=== PATIENT | male | born 1945 | race Caucasian/White ===

== ENCOUNTER 2017-10-07 06:31 | Outpatient (CLI) | payer OTHER ==
--- NOTE | 2017-10-07 08:48 | US ---
EXAM: Bilateral carotid artery Doppler History: Dizziness. Technique: Multiple sonographic images through the bilateral internal carotid arteries were obtained . Color duplex Doppler was used to interrogate vascular flow. Findings: The right ICA peak systolic velocity is moderately elevated measuring 1.7 meters per second. The righ t ICA/cca PSV ratio is moderately increased at 2.4. The right vertebral artery is patent and demonst rates antegrade flow. Sosa scale images demonstrate moderate plaque buildup within the right interna l carotid artery. The left ICA peak systolic velocity is normal measuring 0.9 meters per second. The left ICA/cca PSV ratio is normal at 1.3. The left vertebral artery is patent and demonstrates antegrade flow. Sosa s kalyani images demonstrate mild to moderate plaque buildup within the left internal carotid artery. Impression: 1. Moderate, 50-69% hemodynamic stenosis of the right internal carotid artery. 2. No significant hemodynamic stenosis of the left internal carotid artery.
--- NOTE | 2017-10-07 12:41 | MRI ---
EXAM: Brain MRI with and without contrast. HISTORY: Dizziness and headache. COMPARISON: None. TECHNIQUE: Multiplanar, multisequence MR images were acquired of the brain before and after administ ration of intravenous contrast. FINDINGS: The midline structures are central and the craniocervical junction is unremarkable. The v entricles, sulci and cisterns are commensurately prominent compatible with age related involutional c hanges. There are no abnormal extra-axial fluid collections. The brain parenchyma has no diffusion restriction to suggest acute hypoperfusion or infarction. Ther e are a mild to moderate number of small T2 hyperintensities in the supratentorial white matter and l eft basal ganglia. A chronic lacuna is present in the right caudate head. There is no abnormal dark gradient echo signal. After administration of gadolinium, no enhancing lesions are identified. The corpus callosum is normal. The pituitary gland is small with a concave anterior superior border. E nhancement is homogeneous and the infundibulum is midline. There are no intraorbital masses. There is undulation of the nasal septum and there is hypoplasia of both maxillary sinuses which have mild mucosal thickening and small mucous retention cysts. Minor m ucosal thickening is present in the ethmoid air cells bilaterally and in the sphenoid sinus. Mucosal thickening is present in a few inferior and a few posterior right mastoid air cells. There is no ab normal contrast enhancement in the internal auditory canals or labyrinthine structures. Flow voids are present in the major intracranial arteries and dural venous sinuses. IMPRESSION: 1. No intracranial mass, hemorrhage or acute cerebral infarct. 2. Age related involutional changes and mild to moderate leukomalacia. Possible etiologies include chronic ischemic small vessel disease or hypertensive encephalopathy. 3. Chronic lacuna right caudate nucleus.
== END 2017-10-07 06:32 | disposition home or self-care (01) ==
LOC: CAR 06:31
PROVIDERS: ATTEND Internal Medicine
DX: R06.02 Shortness of breath (principal); R00.2 Palpitations; I49.3 Ventricular premature depolarization; R42 Dizziness and giddiness; R51 Headache
CPT/HCPCS: 36415; 82565

== ENCOUNTER 2017-10-09 06:51 | Outpatient (CLI) | payer OTHER | END 2017-10-09 06:52 | disposition home or self-care (01) | LOC: CAR 06:51 | PROVIDERS: ATTEND Internal Medicine | DX: R06.02 Shortness of breath (principal); R00.2 Palpitations; I49.3 Ventricular premature depolarization ==

== ENCOUNTER 2019-07-20 11:13 | Inpatient (IN) ==
[2019-07-20] MEDS ORDERED: NITROSTAT SL PRN (11:42)
[2019-07-20] MEDS ORDERED: ATROPINE SULFATE PFS IVP PRN (11:42)
[2019-07-20] MEDS ORDERED: VISTARIL INJ IM PRN (11:42)
[2019-07-20] MEDS ORDERED: TYLENOL PO PRN (11:42)
[2019-07-20 11:54] VITALS: BMI 23.6
[2019-07-20 12:00] LABS: HEMATOCRIT 38.5 % (42.0-52.0)
[2019-07-20] MEDS ORDERED: DECADRON 4 MG/ML SDV IM STA (12:31)
--- NOTE | 2019-07-20 13:07 | US ---
EXAM: ULTRASOUND LOWER EXTREMITY VENOUS DOPPLER EXAM HISTORY: Swelling of bilateral legs. FINDINGS: Bilateral lower extremity venous Doppler exam. Real time matta-scale, Doppler spectral rickie lysis and color-flow Doppler imaging performed. The veins targeted for evaluation include the common femoral, greater saphenous, profundus, femoral, popliteal, peroneal, anterior tibial and posterior t ibial. The evaluated veins demonstrated normal spontaneous flow and compression without evidence o f thrombosis. IMPRESSION: No venous thrombosis identified within the areas evaluated.
[2019-07-20] MEDS: CLEOCIN 300 MG/50 ML D5W 300 MG/50 ML BAG IV SCH ×2 (13:34→21:04)
[2019-07-20] MEDS: ROCEPHIN 1 GM/50 ML D5W 1 GM/50 ML BAG IV SCH (14:30)
--- NOTE | 2019-07-20 14:44 | DI ---
EXAM: Chest one view HISTORY: Shortness of air with exertion COMPARISON: None TECHNIQUE: Single view of the chest was performed FINDINGS: The lungs are clear. There is no pleural effusion or pneumothorax. The heart is normal i n size. The mediastinal contour is normal, noting atherosclerosis. There are no acute abnormalities of the bones. IMPRESSION: No acute cardiopulmonary process.
[2019-07-20] MEDS ORDERED: XARELTO PO SCH (21:00)
[2019-07-20] MEDS: RIVAROXABAN 2.5 MG PO SCH (21:04)
[2019-07-21 05:30] LABS: HEMATOCRIT 38.5 % (42.0-52.0)
[2019-07-21] MEDS: CLEOCIN 300 MG/50 ML D5W 300 MG/50 ML BAG IV SCH ×3 (05:39→20:37)
[2019-07-21] MEDS ORDERED: DECADRON 4 MG/ML SDV IM STA (07:47)
--- NOTE | 2019-07-21 08:28 | PCM.PROG ---
Attending Provider: ATTENDING PROVIDER: Dr. SHERRI CHAU This patient is seen with Danielle Roper, Nurse Practitioner. DATE OF SERVICE: 07/21/19 SUBJECTIVE: This 74 year old /WHITE M was hospitalized 07/20/19. The patient is resting comfortably. No fever. Swelling has significantly improved. The patient states the pain has improved. Venous scan was negative. REVIEW OF SYSTEMS: CONSTITUTIONAL: No night sweats. No fatigue, malaise, lethargy. No fever or chills. HEENT: Eyes: No visual changes. No eye pain. No eye discharge. ENT: No runny nose. No epistaxis. No sinus pain. No odynophagia. No congestion. RESPIRATORY: No cough, no congestion. No hemoptysis. No shortness of breath. CARDIOVASCULAR: No angina symptoms. No CHF symptoms. No atypical chest pain for CAD. No palpitations. No orthopnea.. GASTROINTESTINAL: No abdominal pain. No nausea or vomiting. No diarrhea or constipation. No hematemesis. No hematochezia. GENITOURINARY: No urgency. No frequency. No dysuria. No hematuria. No obstructive symptoms. No discharge. No pain. No significant abnormal bleeding. MUSCULOSKELETAL: No musculoskeletal pain; no joint swelling. Right leg pain and swelling. NEUROLOGICAL: Awake, alert, oriented to time, place and person. No headache. No neck pain. No syncope. No seizures. No dizziness. PSYCHIATRIC: Not anxious. No depression. No suicidal thoughts. No homicidal thoughts. SKIN: No rash. No lesions. No wounds. ENDOCRINE: No unexplained weight loss. No weight gain. HEMATOLOGIC/LYMPHATIC: No anemia. No purpura. No petechiae. No prolonged or excessive bleeding. No palpable lymph nodes. PHYSICAL EXAMINATION: GENERAL: The patient is awake, alert and oriented, lying in bed in no distress. VITAL SIGNS: Temperature 97.6 F, Pulse 58, Respiratory Rate 18, BP 159/70, Pulse Ox 99% HEENT: Head normocephalic, atraumatic. Eyes: Extraocular muscles are intact. Pupils are equal, round and reactive to light and accommodation. Ears: No lesions. Nose appeared normal. Throat: No exudate or erythema. NECK: Supple. No JVD, no carotid bruit. No lymphadenopathy or thyromegaly. LUNGS: Diminished breath sounds. Clear to auscultation. Percussion note normal. Chest symmetrical. HEART: S1, S2, no S3. No murmurs. No cyanosis or clubbing. No ascites. Pulses: Dorsalis pedis and posterior tibial pulses +1 to +2 both sides. ABDOMEN: Soft. Non-tender. Bowel sounds active. No CVA tenderness. No mass felt. EXTREMITIES: Right lower extremity erythema and swelling, knee with erythema and swelling of ankle. Full range of motion of all extremities, equal. NEUROLOGIC: No focal deficit. Cranial nerves II through XII are grossly intact. No headache, no double vision or headache. SKIN: Not dry. Intact. Turgor-normal. LYMPHATIC: No palpable lymph nodes/no lymphedema. MUSCULOSKELETAL: Normal joints with no swelling. Muscle tone is normal. LAB REVIEW: 07/21/19 05:12 07/21/19 05:12 07/21/19 05:12: Sodium 137.9, Potassium 4.96, Chloride 108.1 H, Carbon Dioxide 25.9, Anion Gap 8.86, BUN 17.2, Creatinine 0.94, Estimated GFR (MDRD) 78.00, BUN/Creatinine Ratio 18.29, Glucose 120.6 H, Calcium 9.34, Total Bilirubin 0.50, AST 31.8, ALT 22.1, Alkaline Phosphatase 95.0, Total Protein 6.99, Albumin 3.46 L, Globulin 3.53, Albumin/Globulin Ratio 0.98 07/21/19 05:12: WBC 10.29 H, RBC 4.02 L, Hgb 13.3 L, Hct 38.5 L, MCV 95.8 H, MCH 33.1 H, MCHC 34.5, RDW Coeff of Corrine 11.7, Plt Count 260, Immature Gran % (Auto) 0.3, Neut % (Auto) 72.1, Lymph % (Auto) 19.9, [place] % (Auto) 6.7, Eos % (Auto) 0.7, Baso % (Auto) 0.3, Neut # (Auto) 7.4 H, Lymph # (Auto) 2.1, [place] # (Auto) 0.7, Eos # (Auto) 0.1, Baso # (Auto) 0.0, Immature Gran # (Auto) 0.0 07/20/19 19:45: Total Creatine Kinase 81.2, Troponin I < 0.012 07/20/19 17:10: Urine Color Yellow, Urine Clarity Clear, Urine pH 7.0, Ur Specific [place] 1.020, Urine Protein Negative, Urine Glucose (UA) Negative, Urine Ketones Negative, Urine Blood Negative, Urine Nitrite Negative, Urine Bilirubin Negative, Urine Urobilinogen 0.2, Ur Leukocyte Esterase Negative 07/20/19 11:54: Sodium 139.2, Potassium 4.76, Chloride 107.8 H, Carbon Dioxide 28.3, Anion Gap 7.86, BUN 20.0, Creatinine 1.10, Estimated GFR (MDRD) 65.00, BUN/Creatinine Ratio 18.18, Glucose 100.9, Calcium 9.60, Total Bilirubin 0.53, AST 34.5, ALT 25.5, Alkaline Phosphatase 108.3, Total Creatine Kinase 85.2, Troponin I < 0.012, Total Protein 7.52, Albumin 3.87, Globulin 3.65, Albumin/Globulin Ratio 1.06 07/20/19 11:54: WBC 9.82, RBC 3.97 L, Hgb 13.1 L, Hct 38.5 L, MCV 97.0 H, MCH 33.0 H, MCHC 34.0, RDW Coeff of Corrine 11.8, Plt Count 240, Immature Gran % (Auto) 0.4, Neut % (Auto) 56.1, Lymph % (Auto) 28.1, [place] % (Auto) 8.5, Eos % (Auto) 6.2, Baso % (Auto) 0.7, Neut # (Auto) 5.5, Lymph # (Auto) 2.8, [place] # (Auto) 0.8, Eos # (Auto) 0.6, Baso # (Auto) 0.1, Immature Gran # (Auto) 0.0 ASSESSMENT: Please see below. 1. Right lower extremity cellulitis 2. Hypertension 3. History of coronary artery disease. PLAN: 1. CT right leg without contrast 2. 1/2cc Decadrone IM today 3. Continue IV antibiotics 4. Keep right leg elevated Plan and coordination of the patient's care discussed in the presence of Rn Perioperative and nurse. SCRIBED BY: Mabel JEFFERSist scribed while in presence of service performed by Dr. Chau/Danielle Roper APRN on 07/21/19 ([id number])
--- NOTE | 2019-07-21 09:48 | HP ---
DATE OF SERVICE: 07/20/2019 REASON FOR HOSPITALIZATION/HISTORY OF PRESENT ILLNESS: 74 year old male hospitalized with rash on arms and legs. Swollen right lower extremity with redness and pain with walking. No signs or symptoms of CHF and CAD. PAST MEDICAL HISTORY: Chronic back pain Chronic right shoulder pain Severe internal carotid artery stenosis CAD with stent History of SVT Hypertension LVH Ejection Fraction 50% PAST SURGICAL HISTORY: Appendectomy Bilateral knee arthroscope REVIEW OF SYSTEMS: CONSTITUTIONAL: No fever, Fatigue. GAIT: Limping. HEENT: No sinus drainage, no sore throat. RESPIRATORY: No cough, no congestion. CARDIOVASCULAR: No atypical chest pain for coronary artery disease. No angina, CHF symptoms, palpitations or shortness of breath. GASTROINTESTINAL: No melena or abdominal pain. No GERD. GENITOURINARY: No hematuria, no prostatism, no polyuria. OCCUPATIONAL THERAPY PROFESSOR: No blackout, no dizziness, no headache, no double vision. MUSCULOSKELETAL: No osteoarthritis pain, Joint swelling, right knee. ENDOCRINE: No weight loss, no weight gain. SKIN: Not dry, Rash. PSYCHIATRIC: Not anxious, no depression, no suicidal thoughts, no homicidal thoughts. SOCIAL HISTORY: Marital Status: Lives with . Alcohol Usage: No. Tobacco Usage: No. FAMILY HISTORY: Father CAD Mother CA breast Brother 3 brothers; 1 CAD and 1 leg problems (1 CHF and Diabetes mellitus) Sister 1 health? unsure MEDICATIONS: Aspirin 325mg one daily ALLERGIES: No known allergies PHYSICAL EXAMINATION:%. BMI 24.7, height 5'10. Weight 172. V/S: Pulse 64, blood pressure 142/82, temperature 98.1, oxygen saturation 9 GENERAL APPEARANCE: Oriented times three. HEENT: Normal. NECK: No JVP, no bruits. RESPIRATORY: Lungs are clear. CARDIOVASCULAR: S1, S2, no S3, no murmur. No cyanosis, clubbing. No ascites. GI/ABDOMEN: No tenderness. Bowel sounds are active. EXTREMITIES: +1 edema right lower extremity redness right knee and foot. Superficial rash inner forearms. Pulses +1, equal. OCCUPATIONAL THERAPY PROFESSOR: Deep tendon reflexes, sensory, motor and gait all normal. RECTAL/PELVIC/PROSTATE:09-19 (0.9). ASSESSMENT: 1. Swollen Right lower extremity 2. Rule out right DVT 3. Cellulitis right lower extremity 4. Rash, generalized 5. Atopic dermatitis 6. Severe right Internal carotid artery stenosis Dr. Montano 7. Contact dermatitis 8. Right carotid stenosis 50-70% 9. CAD with stent Dr. Davis 10.Right shoulder pain 11.Palpitations, History of SVT 12.Chronic back pain 13.Quit smoking 14.Hypertension, LVH 15.Dyslipidemia 16.Ejection fraction 50% 17.Stress test positive ST wave 18.CA of skin or fall appointment 07-21-2019 Case PLAN: 1. Admit 2. Routine telemetry orders 3. CBC/CMP now and daily 4. Stat bilateral venous scan 5. Rocephin 1 gram IV daily 6. Clindamycin 300mg IV Q 8 hours 7. Decadron 2mg 1/2cc IM times one 8. Keep right leg elevated 9. Continue home medications. TIME SPENT: More than 70 minutes. MTDD
[2019-07-21] MEDS: ROCEPHIN 1 GM/50 ML D5W 1 GM/50 ML BAG IV SCH (09:50)
[2019-07-21] MEDS: MICARDIS PO SCH (09:52)
[2019-07-21] MEDS: LIPITOR PO SCH (09:52)
[2019-07-21] MEDS: RIVAROXABAN 2.5 MG PO SCH ×2 (09:52→20:37)
[2019-07-21] MEDS: ASPIRIN EC PO SCH (09:52)
--- NOTE | 2019-07-21 11:49 | CT ---
EXAM: Noncontrast CT right knee. HISTORY: Evaluate for osteomyelitis. COMPARISON: None. TECHNIQUE: Noncontrast CT of the right knee with coronal size reformats. FINDINGS: Alignment: Anatomic. Bones: No acute fracture. No aggressive osseous lesion. No erosive/destructive changes or cortical indistinctness to suggest osteomyelitis. Joint spaces: Mild tricompartmental osteoarthritis with marginal osteophytosis. Incidental medial an d lateral meniscal chondrocalcinosis. Soft tissues: Nonspecific moderate prepatellar soft tissue swelling with surrounding fat stranding.. Moderate distension of the prepatellar bursa. Atherosclerotic calcifications. IMPRESSION: 1. No CT evidence for osteomyelitis. 2. Prepatellar bursitis with surrounding soft tissue swelling and subcutaneous edema. Broad differe ntial considerations include post traumatic versus inflammatory or infectious etiologies in the appro priate clinical scenario. 3. Mild tricompartmental osteoarthritis.
[2019-07-22 05:26] LABS: HEMATOCRIT 38.3 % (42.0-52.0)
[2019-07-22] MEDS: CLEOCIN 300 MG/50 ML D5W 300 MG/50 ML BAG IV SCH ×3 (05:28→20:09)
[2019-07-22] MEDS: LIPITOR PO SCH (08:37)
[2019-07-22] MEDS: ASPIRIN EC PO SCH (08:37)
[2019-07-22] MEDS: MICARDIS PO SCH (08:38)
[2019-07-22] MEDS: RIVAROXABAN 2.5 MG PO SCH ×2 (08:38→20:09)
[2019-07-22] MEDS: ROCEPHIN 1 GM/50 ML D5W 1 GM/50 ML BAG IV SCH (09:07)
[2019-07-22] MEDS ORDERED: LASIX TAB PO STA (12:09)
[2019-07-23 05:15] LABS: HEMATOCRIT 37.6 % (42.0-52.0)
[2019-07-23] MEDS: CLEOCIN 300 MG/50 ML D5W 300 MG/50 ML BAG IV SCH (06:17)
[2019-07-23] MEDS: ASPIRIN EC PO SCH (08:54)
[2019-07-23] MEDS: RIVAROXABAN 2.5 MG PO SCH (08:54)
[2019-07-23] MEDS: ROCEPHIN 1 GM/50 ML D5W 1 GM/50 ML BAG IV SCH (08:55)
[2019-07-23] MEDS: MICARDIS PO SCH (08:55)
[2019-07-23] MEDS: LIPITOR PO SCH (08:55)
--- NOTE | 2019-07-23 09:18 | PCM.PROG ---
Attending Provider: ATTENDING PROVIDER: Dr. SHERRI CHAU This patient is seen with Danielle Roper, Nurse Practitioner. DATE OF SERVICE: 07/23/19 SUBJECTIVE: This 74 year old /WHITE M was hospitalized 07/20/19. The patient is lying in bed resting comfortably. The redness and swelling of right knee has significantly improved, pain improved. He will be discharged home today. REVIEW OF SYSTEMS: CONSTITUTIONAL: No night sweats. No fatigue, malaise, lethargy. No fever or chills. HEENT: Eyes: No visual changes. No eye pain. No eye discharge. ENT: No runny nose. No epistaxis. No sinus pain. No odynophagia. No congestion. RESPIRATORY: No cough, no congestion. No hemoptysis. No shortness of breath. CARDIOVASCULAR: No angina symptoms. No CHF symptoms. No atypical chest pain for CAD. No palpitations. No orthopnea.. GASTROINTESTINAL: No abdominal pain. No nausea or vomiting. No diarrhea or constipation. No hematemesis. No hematochezia. GENITOURINARY: No urgency. No frequency. No dysuria. No hematuria. No obstructive symptoms. No discharge. No pain. No significant abnormal bleeding. MUSCULOSKELETAL: Right knee pain, redness and swelling. NEUROLOGICAL: Awake, alert, oriented to time, place and person. No headache. No neck pain. No syncope. No seizures. No dizziness. PSYCHIATRIC: Not anxious. No depression. No suicidal thoughts. No homicidal thoughts. SKIN: Superficial rash dorsal aspect right foot and inner arms. No lesions. No wounds. ENDOCRINE: No unexplained weight loss. No weight gain. HEMATOLOGIC/LYMPHATIC: No anemia. No purpura. No petechiae. No prolonged or excessive bleeding. No palpable lymph nodes. PHYSICAL EXAMINATION: GENERAL: The patient is awake, alert and oriented, lying/sitting in bed in no distress. VITAL SIGNS: Temperature 97.8 F, Pulse 54, Respiratory Rate 16, BP 133/72, Pulse Ox 96% HEENT: Head normocephalic, atraumatic. Eyes: Extraocular muscles are intact. Pupils are equal, round and reactive to light and accommodation. Ears: No lesions. Nose appeared normal. Throat: No exudate or erythema. NECK: Supple. No JVD, no carotid bruit. No lymphadenopathy or thyromegaly. LUNGS: Diminished breath sounds. Clear to auscultation. Percussion note normal. Chest symmetrical. HEART: S1, S2, no S3. No murmurs. No cyanosis or clubbing. No ascites. Pulses: Dorsalis pedis and posterior tibial pulses +1 to +2 both sides. ABDOMEN: Soft. Non-tender. Bowel sounds active. No CVA tenderness. No mass felt. EXTREMITIES: Slight improved erythema right knee. No edema of the lower extrem ities. Full range of motion of all extremities, equal. NEUROLOGIC: No focal deficit. Cranial nerves II through XII are grossly intact. No headache, no double vision or headache. SKIN: Not dry. Intact. Turgor-normal. LYMPHATIC: No palpable lymph nodes/no lymphedema. MUSCULOSKELETAL: Normal joints with no swelling. Muscle tone is normal. LAB REVIEW: 07/23/19 05:04 07/23/19 05:04 07/23/19 05:04: Sodium 136.8, Potassium 4.74, Chloride 106.3, Carbon Dioxide 25.7, Anion Gap 9.54, BUN 25.1 H, Creatinine 1.07, Estimated GFR (MDRD) 67.00, BUN/Creatinine Ratio 23.45, Glucose 99.6, Calcium 9.29, Total Bilirubin 0.34, AST 47.0, ALT 41.5, Alkaline Phosphatase 87.6, Total Protein 6.80, Albumin 3.43 L, Globulin 3.37, Albumin/Globulin Ratio 1.01 07/23/19 05:04: WBC 10.13, RBC 3.96 L, Hgb 12.8 L, Hct 37.6 L, MCV 94.9 H, MCH 32.3 H, MCHC 34.0, RDW Coeff of Corrine 11.8, Plt Count 265, Immature Gran % (Auto) 0.7, Neut % (Auto) 48.8, Lymph % (Auto) 37.2, [place] % (Auto) 6.9, Eos % (Auto) 5.8, Baso % (Auto) 0.6, Neut # (Auto) 4.9, Lymph # (Auto) 3.8 H, [place] # (Auto) 0 .7, Eos # (Auto) 0.6, Baso # (Auto) 0.1, Immature Gran # (Auto) 0.1 ASSESSMENT: Please see below. 1. Right lower extremity cellulitis 2. Hypertension 3. History of coronary artery disease. 4. Allergic dermatitis. PLAN: 1. Discharge home today. 2. Instructed no work and to stay inside with feet elevated. 3. Clindamcyin 300 mg p.o. t.i.d times 10 days. 4. Continue all other medications. 5. Followup in Dr. Chau's office on Saturday. Plan and coordination of the patient's care discussed in the presence of Gaming Cashier and nurse. CONDITION: Stable. SCRIBED BY: LISANDRO RODRIGUEZ Estimator And Drafter Supervisor scribed while in presence of service performed by Dr. Chau/Danielle Roper APRN on 07/23/19 ([id number])
[2019-07-23 09:27] VITALS: BP 105/54; TEMP 98.3
--- NOTE | 2019-07-23 10:04 | CM.DICTOOL ---
ADMISSION: 07/20/19 11:13 FINAL DIAGNOSIS: RT LOWER EXTREMETY CELLULITIS HYPERTENSION RASH,GENERALIZED ATOPIC DERMATITIS HX: CORONARY ARTERY DISEASE SEVERE RT INTERNAL CAROTID ARTERY STENOSIS- DR. GARCIA CAD WITH STENT- DR. HILARIO RT SHOULDER PAIN PALPATATIONS, HISTORY OF SVT CHRONIC BACK PAIN SMOKING, HAS QUIT HYPERTENSION DYSLIPIDEMIA LVH EJECTION FRACTION 50% CA OF SKIN TO F/U WITH DR. BROOKS, SCHEDULED 07/21/2019 PAST SURGICAL HISTORY: APPENDECTOMY BILATERAL KNEE ARTHROSCOPE LAST VITALS Temp Pulse Resp BP Pulse Ox 97.8 F 54 L 16 133/72 96 07/23/19 05:21 07/23/19 05:21 07/23/19 05:21 07/23/19 05:21 07/23/19 05:21 TAKE THESE MEDICATIONS AT HOME Aspirin ([facility]in Ec) [facility] Last Admin: 07/23/19 08:54 Dose: 81 mg Documented by: Atorvastatin Calcium (Lipitor) 20 mg PO DAILY [facility] Last Admin: 07/23/19 08:55 Dose: 20 mg Documented by: Nitroglycerin (Nitrostat) 0.4 mg SL Q5MIN X 3 DOSES PRN PRN Reason: Chest Pain Non-Formulary Medication (Rivaroxaban [Xarelto]) 2.5 mg PO BID [facility] Last Admin: 07/23/19 08:54 Dose: 2.5 mg Documented by: Telmisartan (Micardis) 80 mg PO DAILY [facility] Last Admin: 07/23/19 08:55 Dose: 80 mg Documented by: CLINDAMYCIN 300 MG PO TID X 10 DAYS -- ( NEW) ALLERGIES No Known Allergies Allergy (Unverified 03/03/19 09:25) DISCONTINUED MEDICATIONS NONE NEW PRESCRIPTIONS: CLINDAMYCIN 300 MG PO TID X 10 DAYS SMOKING: NON - APPLICABLE DISEASE SPECIFIC EDUCATION: CELLULITIS HTN ALLERGIC DERMATITIS COVID 19 LAB REVIEW: 07/23/19 05:04 07/23/19 05:04 07/23/19 05:04: Sodium 136.8, Potassium 4.74, Chloride 106.3, Carbon Dioxide 25.7, Anion Gap 9.54, BUN 25.1 H, Creatinine 1.07, Estimated GFR (MDRD) 67.00, BUN/Creatinine Ratio 23.45, Glucose 99.6, Calcium 9.29, Total Bilirubin 0.34, AST 47.0, ALT 41.5, Alkaline Phosphatase 87.6, Total Protein 6.80, Albumin 3.43 L, Globulin 3.37, Albumin/Globulin Ratio 1.01 07/23/19 05:04: WBC 10.13, RBC 3.96 L, Hgb 12.8 L, Hct 37.6 L, MCV 94.9 H, MCH 32.3 H, MCHC 34.0, RDW Coeff of Corrine 11.8, Plt Count 265, Immature Gran % (Auto) 0.7, Neut % (Auto) 48.8, Lymph % (Auto) 37.2, [place] % (Auto) 6.9, Eos % (Auto) 5.8, Baso % (Auto) 0.6, Neut # (Auto) 4.9, Lymph # (Auto) 3.8 H, [place] # (Auto) 0.7, Eos # (Auto) 0.6, Baso # (Auto) 0.1, Immature Gran # (Auto) 0.1 PLAN: DISCHARGE HOME TODAY: SATURDAY, JULY 23, 2019 ACTIVITY: UP TOLERATED INDEPENDENTLY. STAY INDOORS AND NO STRENUOUS ACTIVITY UNTIL RELEASED BY MD KEEP RT LOWER EXTREMITY ELEVATED MUCH POSSIBLE. DIET: HEART HEALTHY FOLLOW UP: SEE DR. CHAU/ IRA MCINTOSH,SLAB WORKER/CORDELIA HASSAN,SLAB WORKER ; 07/27/2019 @ 1045 CODE STATUS : DO NOT INTUBATE MR. WELCH IS ALERT AND ORIENTED X 4 . HE IS PLEASANT AND COOPERATIVE. DENIES ANY PAIN OR ITCHING TO RT LOWER EXTREMITY NOW. ITCHING AND RASH TO ARMS RESOLVED. SLIGHT REDNESS PERSIST TO RT KNEE WITH SOME PUFFINESS, RT FOOT WITH ANTERIOR REDNESS AND DRIED SKIN. NO RT LOWER EXT EDEMA. IS UP TOLERATED, INDEPENDENTLY . DOES ELEVATE RT LEG AT TIMES, INSTRUCTED TO ELEVATE MORE OFTEN. SOA AT TIMES WITH REST AND WITH EXERTION. NUTRITIONAL AND FLUID INTAKE GOOD. CONTINENT OF BOWEL AND BLADDER. LAST BM 07/22/2019. LIVES WITH HIS . MD IRA BURNS,VERONICA HASSAN APRN
--- NOTE | 2019-07-23 10:06 | PN ---
DATE OF SERVICE: 07/21/19 SUBJECTIVE: Mr. Tay De Paz was seen and examined with the nurse practitioner. The patient's condition is stable. His leg swelling practically has subsided. Redness around the knee area is also much less. The patient's CT scan of the knee didn't reveal any abscess or any fluid. The rash on the arms and legs are also much better with 1 cc Decadron and antibiotics. The patient likely has cellulitis along with dermatitis. Venous scan was negative. The patient is a nonsmoker. CAD risk factors discussed. TIME SPENT: More than 30 minutes. Plan and coordination of the patient's care discussed in the presence of nurse. LIBRA
--- NOTE | 2019-07-23 10:11 | PN ---
DATE OF SERVICE: 07/22/19 SUBJECTIVE: The patient was seen and examined this morning. The patient's condition has been improving. His echocardiogram showed normal LV contractility, LVH with enlarged LA cavity. Normal valvular structures. REVIEW OF SYSTEMS: CONSTITUTIONAL: No night sweats. No fatigue, malaise, lethargy. No fever or chills. HEENT: Eyes: No visual changes. No eye pain. No eye discharge. ENT: No runny nose. No epistaxis. No sinus pain. No sore throat. No odynophagia. No congestion. RESPIRATORY: No cough, no congestion. No hemoptysis. No shortness of breath. CARDIOVASCULAR: No angina symptoms. No CHF symptoms. No atypical chest pain for CAD. No palpitations. No PND. No orthopnea. GASTROINTESTINAL: No abdominal pain. No nausea or vomiting. No diarrhea or constipation. No hematemesis. No hematochezia. GENITOURINARY: No urgency. No frequency. No dysuria. No hematuria. No obstructive symptoms. No discharge. No pain. No significant abnormal bleeding. MUSCULOSKELETAL: No musculoskeletal pain; no joint swelling. NEUROLOGICAL: No headache. No neck pain. No syncope. No seizures. No dizziness. PSYCHIATRIC: Not anxious. No depression. No suicidal thoughts. No homicidal thoughts. SKIN: No rash. No lesions. No wounds. ENDOCRINE: No unexplained weight loss. No weight gain. HEMATOLOGIC/LYMPHATIC: No anemia. No purpura. No petechiae. No prolonged or excessive bleeding. No palpable lymph nodes. PHYSICAL EXAMINATION: HEENT: Head normocephalic, atraumatic. Eyes: Extraocular muscles are intact. Pupils are equal, round and reactive to light and accommodation. Ears: No lesions. Nose appeared normal. Throat: No exudate or erythema. NECK: Supple. No JVD, no carotid bruit. No lymphadenopathy or thyromegaly. LUNGS: Clear to auscultation. Percussion note normal. Chest symmetrical. HEART: S1, S2, no S3. No murmurs. No cyanosis or clubbing. No ascites. Pulses: Dorsalis pedis and posterior tibial pulses +1 to +2 bilaterally. ABDOMEN: Soft. Nontender. Bowel sounds active. No CVA tenderness. No mass felt. EXTREMITIES: Right-sided leg swelling practically subsided with trace edema, no redness noted. Full range of motion of all extremities, equal. NEUROLOGIC: No focal deficit. Cranial nerves II through XII are grossly intact. No headache, no double vision or headache. SKIN: Not dry. Intact. Turgor - normal. LYMPHATIC: No palpable lymph nodes/no lymphedema. MUSCULOSKELETAL: Normal joints with no swelling. Muscle tone is normal. LABS: CT scan of the right knee was negative for any abscess or infection. PLAN: 1. Continue antibiotics. 2. Elevate the leg. 3. Will give one dose of Lasix p.o. 4. The patient has an appointment with Dr. Luis for lesion on the face. He is also to talk about his other skin problems which seems to be subsiding. EDUCATION: The patient was educated about salt intake, educated about elevating the legs at night. CONDITION: Stable. TIME SPENT: More than 30 minutes. Plan and coordination of the patient's care discussed in the presence of nurse. LIBRA
--- NOTE | 2019-07-23 10:18 | PN ---
DATE OF SERVICE: 07/23/19 SUBJECTIVE: The patient was seen and examined with the nurse practitioner. The patient is up and about doing well. The leg swelling on the right side is gone. No evidence of cellulitis. The patient is discharged on Clindamycin. PHYSICAL EXAMINATION: HEENT: Head normocephalic, atraumatic. Eyes: Extraocular muscles are intact. Pupils are equal, round and reactive to light and accommodation. Ears: No lesions. Nose appeared normal. Throat: No exudate or erythema. NECK: Supple. No JVD, no carotid bruit. No lymphadenopathy or thyromegaly. LUNGS: Clear to auscultation. Percussion note normal. Chest symmetrical. HEART: S1, S2, no S3. No murmurs. No cyanosis or clubbing. No ascites. Pulses: Dorsalis pedis and posterior tibial pulses +1 to +2 bilaterally. ABDOMEN: Soft. Nontender. Bowel sounds active. No CVA tenderness. No mass felt. EXTREMITIES: No edema. Full range of motion of all extremities, equal. NEUROLOGIC: No focal deficit. Cranial nerves II through XII are grossly intact. No headache, no double vision or headache. SKIN: Not dry. Intact. Turgor - normal. LYMPHATIC: No palpable lymph nodes/no lymphedema. MUSCULOSKELETAL: Normal joints with no swelling. Muscle tone is normal. Cardiovascular status is stable. TIME SPENT: More than 30 minutes. Plan and coordination of the patient's care discussed in the presence of nurse. LIBRA
--- NOTE | 2019-07-23 11:20 | DS ---
DATE OF SERVICE: 07/23/19 FINAL DIAGNOSIS: 1. RT LOWER EXTREMETY CELLULITIS 2. HYPERTENSION 3. RASH,GENERALIZED 4. ATOPIC DERMATITIS 5. HX: CORONARY ARTERY DISEASE 6. SEVERE RT INTERNAL CAROTID ARTERY STENOSIS- DR. GARCIA 7. CAD WITH STENT- DR. HILARIO 8. RT SHOULDER PAIN 9. PALPATATIONS, HISTORY OF SVT 10. CHRONIC BACK PAIN 11. SMOKING, HAS QUIT 12. HYPERTENSION 13. DYSLIPIDEMIA 14. LVH 15. EJECTION FRACTION 50% 16. CA OF SKIN TO F/U WITH DR. LUIS, SCHEDULED 07/21/2019 17. PAST SURGICAL HISTORY: APPENDECTOMY 18. BILATERAL KNEE ARTHROSCOPE LAST VITALS Temp Pulse Resp BP Pulse Ox 97.8 F 54 L 16 133/72 96 07/23/19 05:21 07/23/19 05:21 07/23/19 05:21 07/23/19 05:21 07/23/19 05:21 DISCHARGE INSTRUCTIONS: 1. DISCHARGE HOME TODAY: SATURDAY, JULY 23, 2019 2. MD FOLLOW UP: SEE DR. CHAU/ [facility]DEL[facility] SPECIALIST ; 07/27/2019 @ 1045. 3. CODE STATUS : DO NOT INTUBATE MEDICATIONS AT DISCHARGE: Aspirin (Aspirin Ec) 81 mg PO DAILYWM [facility] Last Admin: 07/23/19 08:54 Dose: 81 mg Documented by: Atorvastatin Calcium (Lipitor) 20 mg PO DAILY [facility] Last Admin: 07/23/19 08:55 Dose: 20 mg Documented by: Nitroglycerin (Nitrostat) 0.4 mg SL Q5MIN X 3 DOSES PRN PRN Reason: Chest Pain Non-Formulary Medication (Rivaroxaban ) 2.5 mg PO BID [facility] Last Admin: 07/23/19 08:54 Dose: 2.5 mg Documented by: Telmisartan (Micardis) 80 mg PO DAILY [facility] Last Admin: 07/23/19 08:55 Dose: 80 mg Documented by: CLINDAMYCIN 300 MG PO TID X 10 DAYS -- ( NEW) NEW PRESCRIPTIONS: CLINDAMYCIN 300 MG PO TID X 10 DAYS DISCONTINUED MEDICATIONS: NONE DIET INSTRUCTIONS: HEART HEALTHY ACTIVITY: UP TOLERATED INDEPENDENTLY. STAY INDOORS AND NO STRENUOUS ACTIVITY UNTIL RELEASED BY MD. KEEP RT LOWER EXTREMITY ELEVATED MUCH POSSIBLE. SMOKING: NON-APPLICABLE DISEASE SPECIFIC EDUCATION: CELLULITIS HTN ALLERGIC DERMATITIS COVID 19 HOSPITAL COURSE: This patient was hospitalized through the office after being seen with swelling of the right leg and redness. The patient did not have any deep venous thrombosis. Venous scan negative. The patient was put on Rocephin. The leg was elevated. One dose of Lasix was given. He also had some rash for which he received Decadron practically every day - rash practically had subsided with no itching. Swelling had gone down. Cellulitis seems to have resolved. The patient is to be also followed by Dr. Luis for a lesion on the face but also is supposed to show the rash the patient has. The patient blames the rash on Plavix and blood thinners but he was strongly advised to continue Xarelto. The patient has peripheral arterial disease and coronary artery disease. The effects of Xarelto discussed. He is reluctant about taking blood thinners. Condition at time of discharge stable. He was put on Clindamycin to be seen in 5 to 7 days. LAB REVIEW: 07/23/19 05:04: Sodium 136.8, Potassium 4.74, Chloride 106.3, Carbon Dioxide 25.7, Anion Gap 9.54, BUN 25.1 H, Creatinine 1.07, Estimated GFR (MDRD) 67.00, BUN/Creatinine Ratio 23.45, Glucose 99.6, Calcium 9.29, Total Bilirubin 0.34, AST 47.0, ALT 41.5, Alkaline Phosphatase 87.6, Total Protein 6.80, Albumin 3.43 L, Globulin 3.37, Albumin/Globulin Ratio 1.01 07/23/19 05:04: WBC 10.13, RBC 3.96 L, Hgb 12.8 L, Hct 37.6 L, MCV 94.9 H, MCH 32.3 H, MCHC 34.0, RDW Coeff of Corrine 11.8, Plt Count 265, Immature Gran % (Auto) 0.7, Neut % (Auto) 48.8, Lymph % (Auto) 37.2, [facility] % (Auto) 6.9, Eos % (Auto) 5.8, Baso % (Auto) 0.6, Neut # (Auto) 4.9, Lymph # (Auto) 3.8 H, [facility] # (Auto) 0.7, Eos # (Auto) 0.6, Baso # (Auto) 0.1, Immature Gran # (Auto) 0.1 TIME SPENT: More than 60 minutes. MTDD
--- NOTE | 2019-07-23 12:00 | PN ---
BILLING 07/20/19 ADMISSION DAY LEVEL 5 07/21/19 INTERMEDIATE 07/22/19 INTERMEDIATE 07/23/19 DISCHARGE MTDD
--- NOTE | 2019-07-23 12:27 | ECHO2D ---
Date of Exam: 07/22/2019 Ordering Physician: DR. SHERRI CHAU Room #: 115 Reason for Echo: SOB, COPD, LEG EDEMA M-Mode Normal Adult Results LV Dimensions Normal Adult Results AoV Opening excursions >1.6 >1.6 LVEDD-base- 3.5-5.8 5.0 Ao root dimensions 2.0-3.7 3.5 LVESD-base- 3.1-4.6 L. Atrium dimensions 1.9-3.8 5.2 Post. Wall thickness 0.8-1.1 1.4 IV septum (thickness) 0.7-1.2 1.3 Post. Wall excursion 0.72-1.3 NORMAL Septal motion NORMAL Systolic motion R. Ventricular cavity 1.5-2.0 NORMAL LVEF 60% 57% Paradoxical septal wall motion NORMAL 2-D : 2-D M Mode Echocardiogram was performed using apical four chamber and left parasternal long and short axis views. Mitral, tricuspid and aortic valves appear to be normal. Contractility of the left ventricle seems to be normal, so is the cavity size. ENLARGED LEFT ATRIAL CAVITY SIZE. Aortic root appears to be normal. There is no pericardial effusion. There is no thrombus noted in the left ventricle or left atrial cavity. No mitral valve prolapse noted. M-MODE: MV: NORMAL AV: NORMAL TV: NORMAL PV: CHAMBER SIZE: ENLARGED LEFT ATRIAL CAVITY WALL MOTION: NORMAL PERICARDIUM: NORMAL INTERPRETATION: 1. LEFT VENTRICULAR HYPERTROPHY WITH ENLARGED LEFT ATRIAL CAVITY 2. NORMAL LEFT VENTRICULAR HYPERTROPHY 3. NORMAL VALVES MTDD
== END 2019-07-23 11:20 | disposition home or self-care (01) | DRG 303 ==
LOC: MEDSURG B 11:13
PROVIDERS: ADMIT Internal Medicine; ATTEND Internal Medicine